=== PATIENT | female | born 1975 | race Caucasian/White ===

== ENCOUNTER 2022-01-14 12:59 | Day surgery (SDC) | payer OTHER ==
[~2022-01-14] VITALS: Ht 170.2 cm; Wt 116.3 kg
[2022-01-14] MEDS ORDERED: ALLEGRA ALLERG180 MG (13:09)
[2022-01-14] MEDS ORDERED: OMEP20ER (13:09)
[2022-01-14] MEDS ORDERED: SUMA25 (13:09)
[2022-01-14] MEDS ORDERED: METF500 (13:09)
[2022-01-14] MEDS ORDERED: Flonase 0.05% N16 GM (13:09)
== END 2022-01-14 14:29 | disposition home or self-care (01) ==
LOC: ORSCSDS 12:59
PROVIDERS: Student in an Organized Health Care Education/Training Program
PROC: 0DB78ZX Excision of Stomach, Pylorus, Via Natural or Artificial Opening Endoscopic, Diagnostic (ICD-10-PCS; principal; 2022-01-14 14:15)
PROC: 0DB58ZX Excision of Esophagus, Via Natural or Artificial Opening Endoscopic, Diagnostic (ICD-10-PCS; principal; 2022-01-14 14:15)
DX: K21.9 Gastro-esophageal reflux disease without esophagitis (principal); K29.70 Gastritis, unspecified, without bleeding; K44.9 Diaphragmatic hernia without obstruction or gangrene; Z01.818 Encounter for other preprocedural examination; E78.5 Hyperlipidemia, unspecified; G47.33 Obstructive sleep apnea (adult) (pediatric); Z87.891 Personal history of nicotine dependence; Z79.84 Long term (current) use of oral hypoglycemic drugs; Z79.899 Other long term (current) drug therapy; E66.01 Morbid (severe) obesity due to excess calories; Z68.41 Body mass index [BMI] 40.0-44.9, adult
CPT/HCPCS: 82947; 88305; 88342; A9270; J0330; J0461; J2405; J2704; J7120

== ENCOUNTER → 2024-09-04 | Outpatient (CLI) | payer OTHER ==
[~2024-09-04] MED LIST: ALLEGRA ALLERG180 MG; Flonase 0.05% N16 GM; METF500; OMEP20ER; SUMA25
[2024-09-07 02:07] LABS: C. TRACHOMATIS BY TMA,THINPREP Negative (Negative); N. GONORRHOEAE BY TMA,THINPREP Negative (Negative); SPECIMEN SOURCE Cervical
[2024-09-13 06:33] LABS: HPV HIGH RISK BY TMA Not Detected; HPV SOURCE Cervical
== END | disposition home or self-care (01) ==
LOC: LAB 15:57 → LAB SHORT 15:57
PROVIDERS: Advanced Practice Midwife
DX: Z01.419 Encounter for gynecological examination (general) (routine) without abnormal findings (principal); Z11.3 Encounter for screening for infections with a predominantly sexual mode of transmission
CPT/HCPCS: 87491; 87591; 87624; G0123